=== PATIENT | female | born 1985 | race Caucasian/White ===

== ENCOUNTER 2019-11-11 04:00 | Outpatient (CLI) | payer OTHER ==
[2019-11-11 05:27] LABS: BASOPHILS # (AUTO) 0.1 X10'3 (0-0.2); BASOPHILS % (AUTO) 0.9 % (0-1); EOSINOPHILS # (AUTO) 0.2 X10'3 (0-0.9); EOSINOPHILS % (AUTO) 2.7 % (0-6); HEMATOCRIT 39.8 % (35.0-45.0); HEMOGLOBIN 13.6 g/dl (12.0-16.0); LYMPHOCYTES # (AUTO) 3.5 X10'3 (1.1-4.8); MEAN CORPUSCULAR HEMOGLOBIN 31.2 PG (27.0-31.0); MEAN CORPUSCULAR HGB CONC 34.2 g/dL (33.0-36.5); MEAN CORPUSCULAR VOLUME 91.1 FL (78-98); MONOCYTES # (AUTO) 0.5 X10'3 (0-0.9); MONOCYTES % (AUTO) 8.5 % (2-12); NEUTROPHILS # (AUTO) 1.9 X10'3 (1.8-7.7); NEUTROPHILS % (AUTO) 30.9 % (42-75); PLATELET COUNT 165 X10'3 (140-440); RED BLOOD COUNT 4.37 X10'6 (4.20-5.60); RED CELL DISTRIBUTION WIDTH 13.9 % (11.5-14.5); WHITE BLOOD COUNT 6.1 X10'3 (4.5-11.0)
[2019-11-11 05:28] LABS: CLARITY,URINE SLIGHTLY CLOUDY (Clear); COLOR,URINE YELLOW (Yellow); GLUCOSE, URINE NEGATIVE (Neg); KETONES,URINE 40 mg/dl (Neg); LEUKOCYTE ESTERASE ,URINE NEGATIVE (Neg); NITRITES, URINE NEGATIVE (Neg); OCCULT BLOOD,URINE NEGATIVE (Neg); PROTEIN,URINE NEGATIVE (Neg); UROBILINOGEN,URINE 0.2 E.U/dL (0.2-1.0)
[2019-11-11 05:33] LABS: UA COLLECTION TYPE CLN CATCH MIDSTREAM
[2019-11-11 05:37] LABS: RBC,URINE NONE SEEN /HPF (0-2); WBC,URINE 0-4 /HPF (0-4)
[2019-11-11 05:38] LABS: BACTERIA,URINE 3+ /HPF (Neg); MUCUS STRANDS MANY /LPF (Neg); SQUAMOUS EPITHELIAL CELL,UR MANY /LPF (FEW)
[2019-11-11 06:07] LABS: ALANINE AMINOTRANSFERASE 21 U/L (12-78); ALBUMIN 4.3 G/DL (3.4-5.0); ALBUMIN/GLOBULIN RATIO 1.3 (1.1-1.5); ALKALINE PHOSPHATASE 41 IU/L (46-116); ANION GAP 12 (8-16); ASPARTATE AMINO TRANSFERASE 18 U/L (10-37); BILIRUBIN,TOTAL 0.3 MG/DL (0.1-1.0); BLOOD UREA NITROGEN 17 MG/DL (7-18); CALCIUM 8.6 MG/DL (8.5-10.1); CHLORIDE 105 MMOL/L (99-107); CHOL/HDL RATIO 2.4 (0.00-4.99); CHOLESTEROL 146 MG/DL (0-200); CREATININE 0.85 MG/DL (0.40-0.90); GLUCOSE 82 MG/DL (70-104); HDL CHOLESTEROL 60 MG/DL (35-60); LDL CHOLESTEROL 79 MG/DL (50-100); POTASSIUM 3.4 MMOL/L (3.5-5.1); SODIUM 142 MMOL/L (135-145); TOTAL CARBON DIOXIDE 24.7 MMOL/L (24-32); TOTAL PROTEIN 7.7 G/DL (6.4-8.2); TRIGLYCERIDES 50 MG/DL (20-135); eGFR 76 ML/MIN
[2019-11-11 07:27] LABS: GIANT PLATELET FEW; PLATELET ESTIMATE NORMAL; TOTAL CELLS COUNTED 100
== END 2019-11-11 23:59 | disposition home or self-care (01) ==
LOC: LAB 04:00
PROVIDERS: ATTEND Family Medicine
DX: Z00.00 Encounter for general adult medical examination without abnormal findings (principal)
CPT/HCPCS: 36415; 80053; 80061; 81001; 82306; 84443; 85025

== ENCOUNTER 2019-12-03 02:39 | Outpatient (CLI) | payer OTHER | END 2019-12-03 23:59 | disposition home or self-care (01) | LOC: LAB 02:39 | PROVIDERS: ATTEND Family Medicine | DX: E03.9 Hypothyroidism, unspecified (principal) | CPT/HCPCS: 36415; 84439; 84443 ==

== ENCOUNTER 2020-10-13 17:34 | Outpatient (CLI) | payer BC ==
[2020-10-13 18:20] LABS: ALANINE AMINOTRANSFERASE 20 U/L (12-78); ASPARTATE AMINO TRANSFERASE 13 U/L (10-37); CHOL/HDL RATIO 2.1 (0.00-4.99); CHOLESTEROL 160 MG/DL (0-200); HDL CHOLESTEROL 76 MG/DL (35-60); LDL CHOLESTEROL 78 MG/DL (50-100); TRIGLYCERIDES 68 MG/DL (20-135)
== END 2020-10-13 23:59 | disposition home or self-care (01) ==
LOC: LAB 17:34
DX: E03.9 Hypothyroidism, unspecified (principal); E78.2 Mixed hyperlipidemia; K76.89 Other specified diseases of liver
CPT/HCPCS: 36415; 80061; 84439; 84443; 84450; 84460

== ENCOUNTER 2020-12-16 06:34 | Outpatient (CLI) | payer BC ==
[2020-12-16 07:09] LABS: BASOPHILS # (AUTO) 0.1 X10'3 (0-0.2); BASOPHILS % (AUTO) 1.3 % (0-1); EOSINOPHILS # (AUTO) 0.2 X10'3 (0-0.9); EOSINOPHILS % (AUTO) 4.5 % (0-6); HEMATOCRIT 38.1 % (35.0-45.0); HEMOGLOBIN 12.7 g/dl (12.0-16.0); LYMPHOCYTES # (AUTO) 2.7 X10'3 (1.1-4.8); LYMPHOCYTES % (AUTO) 49.9 % (21-51); MEAN CORPUSCULAR HEMOGLOBIN 31.3 PG (27.0-31.0); MEAN CORPUSCULAR HGB CONC 33.3 g/dL (33.0-36.5); MEAN CORPUSCULAR VOLUME 94.1 FL (78-98); MEAN PLATELET VOLUME 11.2 FL (7.4-10.4); MONOCYTES # (AUTO) 0.6 X10'3 (0-0.9); MONOCYTES % (AUTO) 11.1 % (2-12); NEUTROPHILS # (AUTO) 1.8 X10'3 (1.8-7.7); NEUTROPHILS % (AUTO) 33.2 % (42-75); PLATELET COUNT 162 X10'3 (140-440); RED BLOOD COUNT 4.05 X10'6 (4.20-5.60); RED CELL DISTRIBUTION WIDTH 13.8 % (11.5-14.5); WHITE BLOOD COUNT 5.5 X10'3 (4.5-11.0)
[2020-12-16 07:40] LABS: ALANINE AMINOTRANSFERASE 24 U/L (12-78); ALBUMIN/GLOBULIN RATIO 1.2 (1.1-1.5); ALKALINE PHOSPHATASE 38 IU/L (46-116); ANION GAP 9 (8-16); ASPARTATE AMINO TRANSFERASE 15 U/L (10-37); BILIRUBIN,TOTAL 0.4 MG/DL (0.1-1.0); BLOOD UREA NITROGEN 13 MG/DL (7-18); BUN/CREATININE RATIO 19.7 (6.6-38.0); CALCIUM 8.8 MG/DL (8.5-10.1); CHLORIDE 103 MMOL/L (99-107); CREATININE 0.66 MG/DL (0.40-0.90); GLUCOSE 92 MG/DL (70-104); POTASSIUM 3.6 MMOL/L (3.5-5.1); SODIUM 137 MMOL/L (135-145); TOTAL CARBON DIOXIDE 25.1 MMOL/L (24-32); TOTAL PROTEIN 7.3 G/DL (6.4-8.2); eGFR > 90 ML/MIN
[2020-12-17 17:34] LABS: FSH, SERUM 5.4 mIU/mL (.)
== END 2020-12-16 23:59 | disposition home or self-care (01) ==
LOC: RAD 06:34
PROVIDERS: ATTEND Obstetrics & Gynecology
DX: N93.9 Abnormal uterine and vaginal bleeding, unspecified (principal)
CPT/HCPCS: 76856; 80053; 83001; 83002; 84439; 84443; 85025; 93976

== ENCOUNTER 2021-05-05 06:13 | Outpatient (CLI) | payer BC ==
[2021-05-06 12:45] LABS: THIIODOTHRONINE, FREE, SERUM 3.2 pg/mL (2.0-4.4)
== END 2021-05-05 23:59 | disposition home or self-care (01) ==
LOC: RAD 06:13
DX: E04.2 Nontoxic multinodular goiter (principal)
CPT/HCPCS: 36415; 76536; 82306; 82728; 83540; 83550; 84439; 84443; 84481

== ENCOUNTER 2021-10-26 06:40 | Outpatient (CLI) | payer BC | END 2021-10-26 23:59 | disposition home or self-care (01) | LOC: LAB 06:40 | DX: E06.3 Autoimmune thyroiditis (principal) | CPT/HCPCS: 36415; 84439; 84443; 84481 ==

== ENCOUNTER 2022-01-24 06:28 | Outpatient (CLI) | payer BC ==
[2022-01-24 17:48] LABS: BASOPHILS # (AUTO) 0.1 X10'3 (0-0.2); EOSINOPHILS # (AUTO) 0.1 X10'3 (0-0.9); HEMOGLOBIN 14.6 g/dl (12.0-16.0); LYMPHOCYTES # (AUTO) 2.1 X10'3 (1.1-4.8); MONOCYTES # (AUTO) 0.4 X10'3 (0-0.9); MONOCYTES % (AUTO) 7.9 % (2-12); PLATELET COUNT 200 X10'3 (140-440)
[2022-01-24 17:49] LABS: HEMATOCRIT 42.9 % (35.0-45.0); MEAN CORPUSCULAR HEMOGLOBIN 30.9 PG (27.0-31.0); MEAN CORPUSCULAR VOLUME 90.9 FL (78-98); MEAN PLATELET VOLUME 11.3 FL (7.4-10.4); NEUTROPHILS # (AUTO) 2.6 X10'3 (1.8-7.7); NEUTROPHILS % (AUTO) 49.1 % (42-75); RED BLOOD COUNT 4.73 X10'6 (4.20-5.60); RED CELL DISTRIBUTION WIDTH 13.5 % (11.5-14.5); WHITE BLOOD COUNT 5.2 X10'3 (4.5-11.0)
[2022-01-24 18:13] LABS: ALANINE AMINOTRANSFERASE 26 U/L (12-78); ALBUMIN 4.4 G/DL (3.4-5.0); ALBUMIN/GLOBULIN RATIO 1.2 (1.1-1.5); ALKALINE PHOSPHATASE 42 IU/L (46-116); ANION GAP 12 (8-16); ASPARTATE AMINO TRANSFERASE 18 U/L (10-37); BETA HCG,QUANTITATIVE < 1.0 mIU/ml; BILIRUBIN,TOTAL 0.6 MG/DL (0.1-1.0); BLOOD UREA NITROGEN 18 MG/DL (7-18); CALCIUM 9.1 MG/DL (8.5-10.1); CHLORIDE 101 MMOL/L (99-107); CREATININE 0.75 MG/DL (0.40-0.90); GLUCOSE 85 MG/DL (70-104); POTASSIUM 3.7 MMOL/L (3.5-5.1); SODIUM 138 MMOL/L (135-145); TOTAL PROTEIN 8.2 G/DL (6.4-8.2); eGFR 87 ML/MIN
[2022-01-24 18:22] LABS: GIANT PLATELET FEW; LARGE PLATELETS FEW; PLATELET ESTIMATE NORMAL
[2022-01-25 11:55] LABS: HEMOGLOBIN A1C 4.6 % (4.5-6.2)
[2022-01-26 15:19] LABS: ESTRADIOL 57.7 pg/mL (.); FSH, SERUM 12.5 mIU/mL (.); INSULIN 3.8 uIU/mL (2.6-24.9); LUTEINIZING HORMONE 9.8 mIU/mL (.); PROLACTIN 18.1 ng/mL (4.8-23.3)
== END 2022-01-24 23:59 | disposition home or self-care (01) ==
LOC: LAB 06:28
PROVIDERS: ATTEND Nurse Practitioner Family
DX: N91.4 Secondary oligomenorrhea (principal)
CPT/HCPCS: 36415; 80053; 82627; 82670; 83001; 83002; 83036; 83525; 84146; 84402; 84403; 84439; 84443; 84702; 85008; 85025

== ENCOUNTER 2022-05-23 12:16 | Outpatient (CLI) | payer BC ==
[2022-05-23] MEDS ORDERED: MODA200T48 PO (13:31)
[2022-05-23] MEDS ORDERED: BUPR-317 PO (13:31)
[2022-05-23] MEDS ORDERED: LEVO100T9 PO (13:31)
== END 2022-05-23 23:59 | disposition home or self-care (01) ==
LOC: RAD 12:16
PROVIDERS: ATTEND Family Medicine
DX: M79.89 Other specified soft tissue disorders (principal); S82.891D Other fracture of right lower leg, subsequent encounter for closed fracture with routine healing; W19.XXXD Unspecified fall, subsequent encounter
CPT/HCPCS: 73610; 73630

== ENCOUNTER 2022-05-27 11:07 | Day surgery (SDC) | payer BC ==
[2022-05-23 13:30] LABS: BASOPHILS % (AUTO) 0.7 % (0-1); EOSINOPHILS % (AUTO) 0.8 % (0-6); LYMPHOCYTES # (AUTO) 1.4 X10'3 (1.1-4.8); LYMPHOCYTES % (AUTO) 26.6 % (21-51); MEAN CORPUSCULAR HEMOGLOBIN 31.9 PG (27.0-31.0); MEAN CORPUSCULAR VOLUME 93.7 FL (78-98); MEAN PLATELET VOLUME 10.8 FL (7.4-10.4); MONOCYTES # (AUTO) 0.4 X10'3 (0-0.9); MONOCYTES % (AUTO) 6.8 % (2-12); NEUTROPHILS # (AUTO) 3.3 X10'3 (1.8-7.7); NEUTROPHILS % (AUTO) 65.1 % (42-75); PRE OP HEMATOCRIT 39.2 % (35.0-45.0); PRE OP HEMOGLOBIN 13.3 g/dL (12.0-16.0); PRE OP PLATELET COUNT 192 X10'3 (140-440); RED BLOOD COUNT 4.19 X10'6 (4.20-5.60); RED CELL DISTRIBUTION WIDTH 14.1 % (11.5-14.5)
[2022-05-23 13:39] LABS: ALBUMIN 3.5 G/DL (3.4-5.0); ALBUMIN/GLOBULIN RATIO 0.9 (1.1-1.5); ALKALINE PHOSPHATASE 49 IU/L (46-116); BLOOD UREA NITROGEN 12 MG/DL (7-18); BUN/CREATININE RATIO 16.7 (6.6-38.0); CALCIUM 8.1 MG/DL (8.5-10.1); CHLORIDE 104 MMOL/L (99-107); CREATININE 0.72 MG/DL (0.40-0.90); PRE OP ALT 19 U/L (30-65); PRE OP ANION GAP 9 (8-16); PRE OP AST 28 U/L (10-37); PRE OP BILIRUB, TOTAL 0.9 MG/DL (0.0-1.0); PRE OP GLUCOSE 96 MG/DL (70-104); PRE OP POTASSIUM 3.6 MMOL/L (3.4-5.1); PRE OP SODIUM 138 MMOL/L (135-145); TOTAL CARBON DIOXIDE 24.9 MMOL/L (24-32); TOTAL PROTEIN 7.2 G/DL (6.4-8.2); eGFR > 90 ML/MIN
[2022-05-23 13:53] LABS: HCG SERUM QL NEGATIVE
[2022-05-23 14:04] LABS: PLATELET ESTIMATE NORMAL
[2022-05-23 14:06] LABS: LARGE PLATELETS FEW
[~2022-05-27] VITALS: Ht 154.9 cm; Wt 64.0 kg
[2022-05-27] VITALS (15 sets, daily range): BP systolic 111–127; BP diastolic 73–85
[~2022-05-27 11:07] MED LIST: BUPR-317 PO; LEVO100T9 PO; MODA200T48 PO; famotidine 20mg tablet PO ONE; ringers solution, lacted 1,000 ML IV SCH
[2022-05-27] MEDS ORDERED: scopolamine 1mg/72 hr patch TD SCH (15:50)
[2022-05-27] MEDS ORDERED: ringers solution, lacted 1,000 ML IV SCH (16:15)
[2022-05-27] MEDS ORDERED: ondansetron/PF 4mg/2ml inj IV PRN (16:15)
[2022-05-27] MEDS ORDERED: meperidine/PF 25mg/ml syringe IV PRN ×3 (16:15)
[2022-05-27] MEDS ORDERED: morphine 4 MG/ML inj SYRINge IV PRN (16:15)
[2022-05-27] MEDS ORDERED: ketorolac trometh. 30mg/ml inj. IV ONE (16:15)
[2022-05-27] MEDS ORDERED: proCHLORperazine 10 MG/2 ml inj IV PRN (16:15)
[2022-05-27] MEDS ORDERED: morphine 2 MG/ML inj. syringe IV PRN (16:15)
[2022-05-27] MEDS ORDERED: fentaNYL/PF 50MCG/1 ML 2ML syringe ONE (16:51)
[2022-05-27] MEDS ORDERED: propofol inj 20 ML IV ONE (16:51)
[2022-05-27] MEDS ORDERED: midazolam 1 mg/ML 2ml injection ONE (16:51)
[2022-05-27] MEDS ORDERED: BUPIVAcaine/PF 5 mg/ml 10ml ONE ×2 (16:51→17:33)
[2022-05-27] MEDS ORDERED: dexamethasone sod phosphate 4mg/ml inj. ONE (16:52)
[2022-05-27] MEDS ORDERED: rocuronium 10mg/ml inj IV ONE (16:52)
[2022-05-27] MEDS ORDERED: ondansetron/PF 4mg/2ml inj ONE (16:52)
[2022-05-27] MEDS ORDERED: sevoflurane 250ml liquid IH ONE (16:58)
[2022-05-27] MEDS ORDERED: acetaminophen 1,000mg/100ml IV 100 ML IV ONE (17:21)
[2022-05-27] MEDS ORDERED: sugammadex 200mg/2ml injection IV ONE (18:04)
--- NOTE | 2022-05-27 18:19 | NUR ---
Received from OR via [facility] , accompanied by Anesthesiologist DR ENRIQUE and report given by Anesthesiolgist. PT PRESENTS WIHT PIV 20G LEFT AC, ABD DRESSING AND JOSE DAVID PAD CDI. VSS. Addendum: 05/27/22 at 1833 by Billie Cespedes RN, RN Amended: Links added.
[2022-05-27] MEDS ORDERED: oxyCODONE/APAP 5-325mg tablet PO ONE (19:55)
--- NOTE | 2022-05-27 20:39 | NUR ---
PT HAS MET ALL DC CRITERIA. IV DC'D WITH CANNULA INTACT, DC INSTRUCTIONS REVIEWED WITH PT WHO VERBALIZED UNDERSTANDING WITH NO FURTHER QUESTIONS AT THIS TIME. PT WHEELED OUT OF HOSPITAL IN WHEEL CHAIR O PRIVATE VEHICLE AND FAMILY, TOD[facility] DROVE PT HOME Addendum: 05/27/22 at 2049 by Billie Cespedes RN, RN Amended: Links added.
== END 2022-05-27 20:39 | disposition home or self-care (01) ==
LOC: PAS 11:07
PROVIDERS: ATTEND Obstetrics & Gynecology
DX: Z30.2 Encounter for sterilization (principal); N92.0 Excessive and frequent menstruation with regular cycle; Z79.899 Other long term (current) drug therapy; N94.6 Dysmenorrhea, unspecified; Z98.890 Other specified postprocedural states
CPT/HCPCS: 36415; 58563; 58661; 80053; 82948; 84703; 85025; 86885; 86900; 86901; 87811; J0131; J1100; J1885; J2175; J2250; J2270; J2405; J2704; J3010; J3490; J7030; J7120; Z7506; Z7508; Z7512; 85008; A4355; A4615; A4618; A4649; A6258; A6449